=== PATIENT | female | born 1990 | race Hispanic/Latino ===

== ENCOUNTER 2017-08-19 19:19 | Emergency (ER) | payer SELFPAY ==
[2017-08-19] MEDS ORDERED: Lidocaine 1% PF 5 ML VIAL ONE (20:56)
== END 2017-08-19 22:41 | disposition home or self-care (01) ==
LOC: ERS 19:19
DX: L02.416 Cutaneous abscess of left lower limb (principal)
CPT/HCPCS: 10060; J2001